=== PATIENT | male | born 1965 | race Hispanic/Latino ===

== ENCOUNTER 2016-11-07 14:51 | Emergency (ER) | payer BC, MEDICAID ==
--- NOTE | 2016-11-07 15:34 | CT ---
EXAM DESCRIPTION: CT HEAD WITHOUT IV CONTRAST CLINICAL HISTORY: seizure like activity COMPARISON: None. TECHNIQUE: Noncontrast transaxial CT images of the head are obtained from base to vertex. CT scan was done according to ALARA (As Low as Reasonably Achievable). FINDINGS: The midline structures are not displaced. The sulci are age appropriate. The lateral, third, and fourth ventricles are normal in size, shape, and anatomic positioning. There is no evidence of mass, mass effect, hydrocephalus, or acute intracranial hemorrhage. No abnormal extra axial fluid collections are seen. Normal prajapati-white differentiation is seen. The visualized bone windows show no depressed skull fracture or significant abnormality. Mild mucosal thickening is seen in some of the ethmoid air cells. IMPRESSION: 1. No acute abnormality is seen on noncontrast CT of the head. Electronically signed by: Shaquille Collins MD 11/07/2016 15:32
[2016-11-07] MEDS ORDERED: ACETAMINOPHEN 500 MG TAB PO ONE (15:39)
--- NOTE | 2016-11-07 16:26 | ED.PDOC ---
History of Present Illness - General Chief Complaint: Neuro Symptoms/Deficits Stated Complaint: slurred speech, increased shaking, and weakness Time Seen by Provider: 11/07/16 15:01 Source: patient, family Exam Limitations: clinical condition, physical impairment - History of Present Illness Initial Comments: Patient presents with five hours of convulsive physical activity, AMS, and seizure like activity. His mother says that he normally is talkative and aware but that since he woke up at 10 this morning, he has been untalkative and has had right sided twitching, confusion, and right eyelid drooping. He is currently on seizure medications and she says that when he does have seizures, it is usually his whole body. He normally ambulates well but had problems getting out of the car due to right leg weakness. No other complaints. Timing/Duration: 4-6 hours Severity: moderate Improving Factors: nothing Worsening Factors: nothing Associated Symptoms: fever/chills Allergies/Adverse Reactions: Allergies NO KNOWN ALLERGY Allergy (Verified 11/07/16 15:08) Home Medications: Ambulatory Orders Carbamazepine [Carbamazepine ER] 400 mg PO BID 11/07/16 Gabapentin 600 mg PO TID 11/07/16 Topiramate 200 mg PO BID 11/07/16 Review of Systems - Review of Systems Constitutional: States: see HPI EENTM: States: no symptoms reported Respiratory: States: no symptoms reported Cardiology: States: no symptoms reported Gastrointestinal/Abdominal: States: no symptoms reported Genitourinary: States: no symptoms reported Musculoskeletal: States: no symptoms reported Skin: States: no symptoms reported Neurological: States: see HPI Endocrine: States: no symptoms reported Hematologic/Lymphatic: States: no symptoms reported Past Medical History (General) - Patient Medical History Hx Seizures: No Hx Stroke: No Hx Dementia: No Hx Asthma: No Hx of COPD: No Hx Cardiac Disorders: No Hx Congestive Heart Failure: No Hx Pacemaker: No Hx Hypertension: No Hx Thyroid Disease: No Hx Diabetes: No Hx Gastroesophageal Reflux: No Hx Renal Disease: No Hx Cancer: No Hx of HIV: No Hx Hepatitis C: No Hx MRSA: No Surgical History: no surgical history - Vaccination History Hx Tetanus, Diphtheria Vaccination: Yes Hx Influenza Vaccination: No Hx Pneumococcal Vaccination: No Immunizations Up to Date: No - Social History Hx Tobacco Use: No Hx Alcohol Use: No - Activities of Daily Living Hospice Agency (if applicable):: None - Female History Patient is a Female of Child Bearing Age (10 -59 yrs old): No Patient : No Family Medical History - Family History Mother Family History: Unknown Physical Exam - Physical Exam General Appearance: Alert Eye Exam: bilateral normal Ears, Nose, Throat: normal ENT inspection Neck: non-tender, full range of motion, supple Respiratory: lungs clear Cardiovascular/Chest: normal peripheral pulses, regular rate, rhythm Gastrointestinal/Abdominal: normal bowel sounds, non tender, soft Extremity: normal range of motion, non-tender Neurologic: mortgage processor II-XII nml as tested, no motor/sensory deficits, other - Patient has intermittent right arm convulsions and a drooping right eyelid. DTR: 2+: Biceps, left, Biceps, right, Triceps, left, Triceps, right Skin Exam: normal color Lymphatic: no adenopathy Progress - Progress Progress: 11/07/16 16:28 Ativan 2 mg IV x one. CT head negative. Patient became more alert and talkative. The convulsions stopped. His temperature was 103. Tylenol given IV. WBC wnl. Patient transferred to [facility] for neurological assessment. 11/07/16 17:12 Lumbar puncture attempted x two. Patient was moving quite a bit during the attempt so it was aborted. Vancomycin 1 gram IV and Rocephin 1 gram IV started. Patient transferred to [facility] in [place]. Departure - Departure Clinical Impression: Seizure disorder, Altered mental status, Fever, Convulsions Disposition: Transfer to Hospital Condition: Fair Departure Forms: ED Discharge - Pt. Copy, Patient Portal Self Enrollment Diet: other - NPO Activity: other - as per hospitalist Home Medications: Ambulatory Orders Carbamazepine [Carbamazepine ER] 400 mg PO BID 11/07/16 Gabapentin 600 mg PO TID 11/07/16 Topiramate 200 mg PO BID 11/07/16
[2016-11-07] MEDS ORDERED: VANCOMYCIN HCL INJ 1,000 MG in SODIUM CHLORIDE 0.9% 250ML 250 ML IVPB ONE (17:14)
[2016-11-07] MEDS ORDERED: cefTRIAXone SODIUM 1 GM in SODIUM CHL 0.9% 50ML MIN-BAG+ 50 ML IVPB ONE (17:14)
[2016-11-07] MEDS ORDERED: SODIUM CHLORIDE 0.9% 1000ML 1,000 ML IVS PRN (17:23)
[2016-11-07 17:24] VITALS: BP 101/65
[2016-11-07] MEDS ORDERED: cefTRIAXone SODIUM 1 GM VIAL ONE (17:26)
[2016-11-07] MEDS ORDERED: SODIUM CHL 0.9% 50ML MIN-BAG+ 50 ML IVPB ONE (17:26)
[2016-11-07] MEDS ORDERED: SODIUM CHLORIDE 0.9% 250ML 250 ML ONE (17:43)
[2016-11-07] MEDS ORDERED: VANCOMYCIN HCL INJ 1,000 MG VIAL IVPB ONE (17:43)
[2016-11-07 18:49] VITALS: TEMP 102.4; O2SAT 95
== END 2016-11-07 18:35 | disposition short-term general hospital (02) ==
LOC: ER 14:51
DX: R41.82 Altered mental status, unspecified (principal); G40.909 Epilepsy, unspecified, not intractable, without status epilepticus; R50.9 Fever, unspecified; Z79.899 Other long term (current) drug therapy